=== PATIENT | male | born 1940 | race Caucasian/White ===

== ENCOUNTER 2023-09-09 17:55 | Observation (INO) | payer OTHER ==
[~2023-09-09] VITALS: Ht 175.3 cm; Wt 73.0 kg
[2023-09-09 19:08] LABS: BASOPHILS # (AUTO) 0.06 K/uL (0.00-0.20); BASOPHILS % (AUTO) 0.8 % (0.0-5.0); EOSINOPHILS # (AUTO) 0.35 K/uL (0.00-0.70); EOSINOPHILS % (AUTO) 4.7 % (0.0-8.0); HEMATOCRIT 41.3 % (42-54); IMMATURE GRANULOCYTE ABSOLUTE 0.02 K/uL (0-1); LYMPHOCYTES # (AUTO) 1.2 K/uL (1.0-4.8); LYMPHOCYTES % (AUTO) 16.5 % (21.0-51.0); MEAN CORPUSCULAR HEMOGLOBIN 32.2 pg (27.0-33.0); MEAN CORPUSCULAR HGB CONC 35.4 g/dL (32.0-36.0); MEAN CORPUSCULAR VOLUME 91.2 fL (79-99); MONOCYTES # (AUTO) 0.6 K/uL (0.1-1.0); MONOCYTES % (AUTO) 8.4 % (3.0-13.0); NEUTROPHILS # (AUTO) 5.1 K/uL (1.8-7.7); NEUTROPHILS % (AUTO) 69.3 % (40.0-77.0); PLATELET COUNT (AUTO) 239 K/uL (130-400); RED BLOOD CELL COUNT(AUTO) 4.53 MIL/uL (4.50-6.20); RED CELL DISTRIBUTION WIDTH 12.9 % (11.0-15.5); WHITE BLOOD COUNT (AUTO) 7.4 K/uL (4.8-10.8)
[2023-09-09 19:14] LABS: INR 0.96 (0.85-1.15); PROTHROMBIN TIME 11.4 SEC (9.6-11.6)
[2023-09-09 19:15] LABS: PARTIAL THROMBOPLASTIN TIME 30.8 SEC (26.3-35.5)
[2023-09-09 19:18] LABS: CREATININE 1.1 mg/dL (0.5-1.3); POTASSIUM 4.1 mmol/L (3.5-5.1)
[2023-09-09 19:27] LABS: ALBUMIN 3.6 g/dL (3.5-5.0); BILIRUBIN,TOTAL 0.4 mg/dL (0.2-1.0); TOTAL PROTEIN, SERUM 6.6 g/dL (6.0-8.3)
[2023-09-09] MEDS ORDERED: HYDRALAZINE 20MG/ML VIAL IV PRN (19:30)
[2023-09-09] MEDS ORDERED: ZOLPIDEM TARTRATE 5 MG TAB PO PRN (19:30)
[2023-09-09] MEDS ORDERED: OXYCODONE HCL 5 MG TAB PO PRN (19:30)
[2023-09-09] MEDS ORDERED: KETOROLAC 15MG/ML VIAL (15MG/ML) IV PRN (19:30)
[2023-09-09] MEDS ORDERED: ACETAMINOPHEN 325 MG TAB PO PRN ×2 (19:30)
[2023-09-09] MEDS ORDERED: NITROGLYCERIN 0.4 MG SL TAB SL PRN (19:30)
[2023-09-09] MEDS ORDERED: LACTULOSE 20 GM/30 ML UDCUP PO PRN (19:30)
[2023-09-09] MEDS ORDERED: MAG/ALUM/SIMETH 30 ML UDCUP PO PRN (19:30)
[2023-09-09] MEDS ORDERED: GUAIFENESIN-DM 200/20 MG 10 ML PO PRN (19:30)
[2023-09-09] MEDS ORDERED: ONDANSETRON 4MG INJ IV PRN (19:30)
[2023-09-09] MEDS ORDERED: MAGNESIUM 2GM PREMIX 50ML 50 ML IV PRN (19:30)
[2023-09-09 20:27] LABS: APPEARANCE,URINE CLEAR (CLEAR); BILIRUBIN,URINE NEGATIVE (NEGATIVE); COLOR,URINE LIGHT-YELLOW (YELLOW); GLUCOSE, URINE (UA) NEGATIVE (NEGATIVE); KETONES,URINE NEGATIVE (NEGATIVE); LEUKOCYTE ESTERASE ,URINE NEGATIVE Leu/uL (NEGATIVE); NITRATE,URINE NEGATIVE (NEGATIVE); OCCULT BLOOD,URINE NEGATIVE (NEGATIVE); PH,URINE 6.5 (5.0-8.0); PROTEIN,URINE NEGATIVE (NEGATIVE); UROBILINOGEN,URINE 0.2 mg/dL (0.2-1.0)
[2023-09-09 20:33] LABS: ADD UA MICROSCOPIC NO
[2023-09-09] MEDS: INSULIN HUMULIN R 100 UNIT/ML 3ML SQ SCH (21:00)
[2023-09-09 21:39] VITALS: BP 163/80; PULSE 65; RESP 18
[2023-09-09] MEDS: FAMOTIDINE 20MG VIAL IV SCH (22:13)
[2023-09-09] MEDS: HEPARIN 5,000 UNIT VIAL SQ SCH (22:38)
[2023-09-09] MEDS: DiphenhydrAMINE HCL 50 MG/ML VIAL IV PRN (22:58)
[2023-09-09] MEDS: ACETAMINOPHEN 325 MG TAB PO PRN (22:58)
[2023-09-09] MEDS ORDERED: FEXO-263 PO (23:33)
[2023-09-09] MEDS ORDERED: HYDR28CR51 TP (23:33)
[2023-09-09] MEDS ORDERED: FLEC150T2 PO (23:33)
[2023-09-09] MEDS ORDERED: OMEP40CA21 PO (23:33)
[2023-09-09] MEDS ORDERED: TAMSULOSIN PO (23:33)
[2023-09-09] MEDS ORDERED: METO-391 PO (23:33)
[2023-09-09] MEDS ORDERED: CHOL500050 PO (23:33)
[2023-09-09] MEDS ORDERED: DILT240C97 PO (23:33)
[2023-09-09] MEDS ORDERED: RIVA20TA PO (23:33)
[2023-09-09] MEDS ORDERED: DOCU100C33 PO (23:33)
[2023-09-09] MEDS ORDERED: TADA5TAB13 PO (23:33)
[2023-09-09 23:39] VITALS: BP 146/69; PULSE 71; RESP 18
[2023-09-09 23:56] VITALS: O2SAT 97
[2023-09-10] VITALS (8 sets, daily range): BP systolic 92–148; BP diastolic 51–70; PULSE 60–70; RESP 16–18; O2SAT 98
[2023-09-10] MEDS: PANTOPRAZOLE 40 MG TAB DR PO SCH (08:53)
[2023-09-10] MEDS: FLECAINIDE ACETATE 100 MG TABLET PO SCH (08:54)
[2023-09-10] MEDS: METOPROLOL SUCCINATE 50 MG TAB.SR.24H PO SCH (08:55)
[2023-09-10] MEDS: CETIRIZINE HCL 5 MG TABLET PO SCH (08:57)
[2023-09-10] MEDS: DOCUSATE SODIUM 100 MG CAP PO SCH (08:57)
[2023-09-10] MEDS: TAMSULOSIN HCL 0.4 MG CAP.ER.24H PO SCH (08:58)
[2023-09-10] MEDS ORDERED: DILTIAZEM HCL PO SCH (09:00)
[2023-09-10] MEDS ORDERED: FLECAINIDE ACETATE PO SCH (09:00)
[2023-09-10] MEDS ORDERED: FEXOFENADINE HCL 180 MG PO SCH (09:00)
[2023-09-10] MEDS: DILTIAZEM 120MG SR CAP PO SCH (09:00)
[2023-09-10] MEDS: HYDROCORTISONE 2.5% CREAM 28G TP SCH ×2 (09:00→20:42)
[2023-09-10] MEDS: Tadalafil 5 MG PO SCH (09:00)
[2023-09-10] MEDS: VITAMIN D3 1250 MCG PO SCH (09:00)
[2023-09-10] MEDS ORDERED: TAMSULOSIN 0.4 MG PO SCH (09:00)
[2023-09-10] MEDS ORDERED: NON-FORMULARY MEDICATION 1 EACH (Omeprazole 1 CAP) PO SCH (09:00)
[2023-09-11] VITALS (8 sets, daily range): BP systolic 114–140; BP diastolic 52–79; PULSE 51–67; RESP 16–18; O2SAT 98
[2023-09-11 08:29] LABS: BASOPHILS # (AUTO) 0.06 K/uL (0.00-0.20); BASOPHILS % (AUTO) 0.7 % (0.0-5.0); EOSINOPHILS # (AUTO) 0.28 K/uL (0.00-0.70); EOSINOPHILS % (AUTO) 3.4 % (0.0-8.0); HEMATOCRIT 39.5 % (42-54); IMMATURE GRANULOCYTE ABSOLUTE 0.02 K/uL (0-1); LYMPHOCYTES # (AUTO) 1.3 K/uL (1.0-4.8); LYMPHOCYTES % (AUTO) 15.8 % (21.0-51.0); MEAN CORPUSCULAR HEMOGLOBIN 31.4 pg (27.0-33.0); MEAN CORPUSCULAR HGB CONC 35.2 g/dL (32.0-36.0); MEAN CORPUSCULAR VOLUME 89.2 fL (79-99); MONOCYTES # (AUTO) 0.7 K/uL (0.1-1.0); MONOCYTES % (AUTO) 8.8 % (3.0-13.0); NEUTROPHILS # (AUTO) 5.8 K/uL (1.8-7.7); NEUTROPHILS % (AUTO) 71.1 % (40.0-77.0); PLATELET COUNT (AUTO) 241 K/uL (130-400); RED BLOOD CELL COUNT(AUTO) 4.43 MIL/uL (4.50-6.20); RED CELL DISTRIBUTION WIDTH 13.2 % (11.0-15.5); WHITE BLOOD COUNT (AUTO) 8.2 K/uL (4.8-10.8)
[2023-09-11] MEDS: FLECAINIDE ACETATE 100 MG TABLET PO SCH (08:35)
[2023-09-11 08:51] LABS: ALBUMIN 3.6 g/dL (3.5-5.0); BILIRUBIN,TOTAL 0.5 mg/dL (0.2-1.0); CREATININE 1.4 mg/dL (0.5-1.3); MAGNESIUM 1.9 mg/dL (1.80-2.40); TOTAL PROTEIN, SERUM 6.4 g/dL (6.0-8.3)
[2023-09-12] VITALS (8 sets, daily range): BP systolic 110–157; BP diastolic 60–91; PULSE 62–76; RESP 16–20; O2SAT 95–98
[2023-09-12 03:36] LABS: HEMATOCRIT 37.9 % (42-54); MEAN CORPUSCULAR HEMOGLOBIN 31.8 pg (27.0-33.0); MEAN CORPUSCULAR HGB CONC 34.8 g/dL (32.0-36.0); MEAN CORPUSCULAR VOLUME 91.3 fL (79-99); RED BLOOD CELL COUNT(AUTO) 4.15 MIL/uL (4.50-6.20); WHITE BLOOD COUNT (AUTO) 6.8 K/uL (4.8-10.8)
[2023-09-12 03:44] LABS: CREATININE 1.2 mg/dL (0.5-1.3)
[2023-09-12 03:50] LABS: INR <= 0.93 (0.85-1.15)
[2023-09-12] MEDS: HYDROCODONE/ACETAMINOPHEN 5/325 MG TAB PO PRN (16:08)
[2023-09-13] VITALS (10 sets, daily range): BP systolic 103–142; BP diastolic 58–67; PULSE 60–64; RESP 18–20; O2SAT 95
[2023-09-13 03:47] LABS: MEAN CORPUSCULAR HEMOGLOBIN 31.7 pg (27.0-33.0); MEAN CORPUSCULAR VOLUME 90.7 fL (79-99); RED BLOOD CELL COUNT(AUTO) 4.19 MIL/uL (4.50-6.20); RED CELL DISTRIBUTION WIDTH 13.2 % (11.0-15.5); WHITE BLOOD COUNT (AUTO) 7.5 K/uL (4.8-10.8)
[2023-09-13 04:04] LABS: ALBUMIN 3.4 g/dL (3.5-5.0); BILIRUBIN,TOTAL 0.4 mg/dL (0.2-1.0); CREATININE 1.5 mg/dL (0.5-1.3); POTASSIUM 4.3 mmol/L (3.5-5.1); TOTAL PROTEIN, SERUM 6.2 g/dL (6.0-8.3)
[2023-09-13] MEDS: Tadalafil 5 MG PO SCH (08:34)
[2023-09-13] MEDS ORDERED: LIDOCAINE HCL 1% MDV 50ML VIAL ONE (13:06)
[2023-09-13] MEDS ORDERED: BUPIVACAINE/PF 0.25% 30ML VIAL IJ ONE (13:06)
[2023-09-13] MEDS ORDERED: VANCOMYCIN 1G/250ML KIT 500 ML IV ONE (13:15)
[2023-09-13] MEDS ORDERED: IOHEXOL-350 50ML VIAL IV ONE (13:16)
[2023-09-13] MEDS ORDERED: MIDAZOLAM HCL 1 MG/ML 2ML VIAL ONE ×2 (13:45→13:49)
[2023-09-13] MEDS ORDERED: MEPERIDINE-PF 25 MG/ML SYG ONE ×2 (13:45→13:49)
[2023-09-13] MEDS ORDERED: BACITRACIN 1 EACH PACKET TP ONE (14:15)
[2023-09-13] MEDS ORDERED: TRAM50TA4 PO (14:27)
[2023-09-13] MEDS ORDERED: ACETAMINOPHEN WITH CODEINE 1 TAB TAB PO PRN (14:30)
[2023-09-13] MEDS ORDERED: ACETAMINOPHEN 500 MG TABLET PO PRN (14:30)
== END 2023-09-13 17:37 | disposition home or self-care (01) ==
LOC: EDH 17:55 → EDHIP 19:02 → 2AH 20:15
PROVIDERS: ADMIT Hospitalist; ATTEND Hospitalist
DX: Z45.010 Encounter for checking and testing of cardiac pacemaker pulse generator [battery] (principal); I48.0 Paroxysmal atrial fibrillation; D68.69 Other thrombophilia; I10 Essential (primary) hypertension; E78.5 Hyperlipidemia, unspecified; G47.33 Obstructive sleep apnea (adult) (pediatric); N40.0 Benign prostatic hyperplasia without lower urinary tract symptoms; I49.5 Sick sinus syndrome; Z88.0 Allergy status to penicillin; Z88.2 Allergy status to sulfonamides; Z79.01 Long term (current) use of anticoagulants; Z96.611 Presence of right artificial shoulder joint; Z90.49 Acquired absence of other specified parts of digestive tract; Z96.643 Presence of artificial hip joint, bilateral; Z96.612 Presence of left artificial shoulder joint; Z95.810 Presence of automatic (implantable) cardiac defibrillator
CPT/HCPCS: 96374; 96372 ×4; 96375; 99284; 84484 ×2; 80053 ×3; 85025 ×2; 85610 ×2; 85730 ×2; 82948 ×5; 81003; 36415 ×5; 71045; 93005; 96376 ×4; 83880; 85378; 93356; 83735 ×2; 97161; 97116; 97530 ×2; 80048; 85027 ×2; 33228; G0378 ×92; J1200 ×4; J3490 ×8; J1644 ×11; C8929; C1785; J0665; J2250 ×2; J3370; J2175 ×2; Q9967; 93306; 99156; 99157